=== PATIENT | female | born 1980 | race Two or more races ===

== ENCOUNTER 2019-09-22 14:12 | Emergency (ER) | payer MEDICAID ==
[~2019-09-22] VITALS: Ht 157.5 cm; Wt 67.8 kg
--- NOTE | 2019-09-22 15:00 | NUR ---
Pt to room from lobby.
--- NOTE | 2019-09-22 15:14 | NUR ---
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
--- NOTE | 2019-09-22 15:28 | NUR ---
CAFETERIA AIDE NOTIFIED L&D ABOUT >20 WEEKS.
--- NOTE | 2019-09-22 16:13 | NUR ---
RECEIVED NOTIFICATION FROM LAB, PT IS COVID +. NOTIFIED.
--- NOTE | 2019-09-22 17:44 | NUR ---
MD AT BEDSIDE TO UPDATE PT ON POC.
[2019-09-22 18:14] VITALS: BP 126/88
--- NOTE | 2019-09-22 18:14 | NUR ---
Discharge instructions reviewed
== END 2019-09-22 18:17 | disposition home or self-care (01) ==
LOC: ED 16:44
DX: O98.512 Other viral diseases complicating pregnancy, second trimester (principal); U07.1 COVID-19; R05 Cough; M79.10 Myalgia, unspecified site; R51 Headache; R94.31 Abnormal electrocardiogram [ECG] [EKG]; Z3A.23 23 weeks gestation of pregnancy
CPT/HCPCS: 76815; 87635; 93005; 99285